=== PATIENT | male | born 1965 | race Caucasian/White ===

== ENCOUNTER 2017-06-16 00:45 | Emergency (ER) | payer OTHER ==
[~2017-06-16] VITALS: Ht 188 cm; Wt 83.9 kg
[2017-06-16 01:01] VITALS: BP 158/67
[2017-06-16] MEDS ORDERED: PENICILLIN G BENZATHINE 2.4 MMU/4 ML ML IM ONE ×2 (01:30→02:03)
== END 2017-06-16 02:22 | disposition home or self-care (01) ==
LOC: ER 00:45
DX: K08.89 Other specified disorders of teeth and supporting structures (principal)
CPT/HCPCS: 96372; 99283; A4606; J0558; Z7610

== ENCOUNTER 2018-03-23 06:43 | Emergency (ER) | payer SELFPAY ==
[~2018-03-23] VITALS: Ht 182.9 cm; Wt 74.8 kg
[2018-03-23 06:43] VITALS: BP 123/94
== END 2018-03-23 06:57 | disposition home or self-care (01) ==
LOC: ER 06:43
DX: M77.01 Medial epicondylitis, right elbow (principal)
CPT/HCPCS: 99281; A4606; Z7610; Z7502

== ENCOUNTER 2022-07-27 07:48 | Emergency (ER) | payer MEDICAID ==
[~2022-07-27] VITALS: Ht 188 cm; Wt 83.9 kg
--- NOTE | 2022-07-27 09:06 | NUR ---
DR JAY AT BEDSIDE FOR EVAL.
[2022-07-27] MEDS ORDERED: LIDOCAINE 1%-EPI 1:100,000 20 ML VIAL TP ONE (09:30)
[2022-07-27] MEDS ORDERED: SULF1TAB48 PO (09:39)
--- NOTE | 2022-07-27 09:42 | NUR ---
INCISION AND DRAINAGE DONE. PT TOLERATED PROCEDURE WELL.
--- NOTE | 2022-07-27 09:56 | NUR ---
Patient discharged to home in stable condition. Written and verbal after care instructions given. Patient verbalizes understanding of instruction.
[2022-07-27 09:57] VITALS: BP 120/80
== END 2022-07-27 09:58 | disposition home or self-care (01) ==
LOC: ER 08:05
DX: L02.416 Cutaneous abscess of left lower limb (principal)
CPT/HCPCS: 99283; 10060; 76882; A6403; A6407

== ENCOUNTER 2022-07-31 00:24 | Emergency (ER) | payer MEDICAID ==
[~2022-07-31] VITALS: Ht 177.8 cm; Wt 70.3 kg
[~2022-07-31 00:24] MED LIST: SULF1TAB48 PO
[2022-07-31 01:01] VITALS: BP 144/77
== END 2022-07-31 03:20 | disposition home or self-care (01) ==
LOC: ER 00:25
DX: L02.416 Cutaneous abscess of left lower limb (principal); Z48.00 Encounter for change or removal of nonsurgical wound dressing

== ENCOUNTER 2022-09-03 03:40 | Emergency (ER) | payer MEDICAID ==
[~2022-09-03] VITALS: Ht 182.9 cm; Wt 65.8 kg
[2022-09-03 03:49] VITALS: BP 136/80
[2022-09-03] MEDS ORDERED: KETO10TA2 PO (03:53)
--- NOTE | 2022-09-03 04:10 | NUR ---
DRESSING DONE TO WOUNDS
--- NOTE | 2022-09-03 04:17 | NUR ---
Patient discharged to home in stable condition. Written and verbal after care instructions given. Patient verbalizes understanding of instruction.
== END 2022-09-03 04:17 | disposition home or self-care (01) ==
LOC: ER 03:42
DX: T25.632A Corrosion of second degree of left toe(s) (nail), initial encounter (principal); Z79.899 Other long term (current) drug therapy; Y93.89 Activity, other specified; Y92.89 Other specified places as the place of occurrence of the external cause; Y99.8 Other external cause status
CPT/HCPCS: 99283; A6403

== ENCOUNTER 2023-11-18 05:00 | Emergency (ER) | payer MEDICAID, OTHER ==
[~2023-11-18] VITALS: Ht 185.4 cm; Wt 88.5 kg
[~2023-11-18 05:00] MED LIST changes: +KETO10TA2 PO
[2023-11-18 06:17] LABS: BASOPHILS # (AUTO) 0.2 K/uL (0.0-0.2); BASOPHILS % (AUTO) 2.8 % (0.0-2.0); EOSINOPHILS # (AUTO) 0.3 K/uL (0.0-0.7); EOSINOPHILS % (AUTO) 5.6 % (0.0-6.0); HEMATOCRIT 39 % (39-51); HEMOGLOBIN 12.8 g/dL (13.5-17.5); LYMPHOCYTES # (AUTO) 0.8 K/uL (0.8-4.8); LYMPHOCYTES % (AUTO) 15.2 % (20.0-44.0); MEAN CORPUSCULAR HEMOGLOBIN 29 PG (26.0-33.0); MEAN CORPUSCULAR HGB CONC 33 g/dl (31.0-36.0); MEAN CORPUSCULAR VOLUME 89 fL (80-96); MONOCYTES # (AUTO) 0.3 K/uL (0.1-1.30); MONOCYTES % (AUTO) 6.4 % (2.0-12.0); NEUTROPHILS # (AUTO) 3.8 K/uL (1.8-8.9); PLATELET COUNT (AUTO) 296 K/uL (150-450); RED BLOOD CELL COUNT(AUTO) 4.37 MIL/uL (4.5-6.0); RED CELL DISTRIBUTION WIDTH 14.7 % (11.5-15.0); WHITE BLOOD COUNT (AUTO) 5.4 K/uL (4.3-11.0)
[2023-11-18 06:25] LABS: INR 1.01 (0.91-1.10); PARTIAL THROMBOPLASTIN TIME 32.3 SEC (24.3-34.3); PROTHROMBIN TIME 10.7 SECS (9.2-11.1)
[2023-11-18 06:47] LABS: ALANINE AMINOTRANSFERASE 18 U/L (12-78); ALBUMIN 3.3 g/dL (3.4-5.0); ALKALINE PHOSPHATASE 121 U/L (46-116); ASPARTATE AMINOTRANSFERASE 17 U/L (15-37); BILIRUBIN,DIRECT 0.1 mg/dL (0.0-0.2); BILIRUBIN,TOTAL 0.4 mg/dL (0.2-1.0); CALCIUM, SERUM 8.8 mg/dL (8.5-10.1); CARBON DIOXIDE 28 mmol/L (21-32); CHLORIDE 103 mmol/L (98-107); CREATININE 0.7 mg/dL (0.6-1.3); GLUCOSE 88 mg/dL (74-106); NT-PRO BNP 40 pg/mL (0-125); POTASSIUM 3.9 mmol/L (3.5-5.1); SODIUM SERUM 139 mmol/L (136-145); TOTAL PROTEIN, SERUM 7.2 g/dL (6.4-8.2); UREA NITROGEN, BLOOD 10 mg/dL (7-18)
[2023-11-18] MEDS ORDERED: ALBUTEROL FS 2.5 MG/3 ML VIAL.NEB ONE (06:49)
[2023-11-18] MEDS ORDERED: IPRATROPIUM NEB FS 0.5 MG/2.5 ML AMPUL.NEB ONE (06:49)
[2023-11-18 06:55] VITALS: O2SAT 93
[2023-11-18] MEDS: ALBUTEROL FS 2.5 MG/3 ML VIAL.NEB CONTNEB ONE (06:55)
[2023-11-18] MEDS: IPRATROPIUM NEB FS 0.5 MG/2.5 ML AMPUL.NEB NEB ONE (06:55)
[2023-11-18] MEDS ORDERED: predniSONE 20 MG TABLET ONE (06:58)
[2023-11-18] MEDS ORDERED: PRED20TA PO (07:00)
[2023-11-18] MEDS ORDERED: AMOX-430 PO (07:00)
[2023-11-18] MEDS: predniSONE 20 MG TABLET PO ONE (07:00)
[2023-11-18] MEDS ORDERED: ALBU18HF2 INH (07:00)
[2023-11-18] MEDS ORDERED: AZIT250T13 PO (07:00)
[2023-11-18 07:40] VITALS: O2SAT 99
[2023-11-18 08:46] VITALS: BP 166/89; TEMP 97.9; O2SAT 99
== END 2023-11-18 08:46 | disposition home or self-care (01) ==
LOC: ER 05:03
DX: J40 Bronchitis, not specified as acute or chronic (principal); Z60.2 Problems related to living alone; Z79.899 Other long term (current) drug therapy
CPT/HCPCS: 99285; 71045; 93005; 85025; 80048; 80076; 36415; 84484; 85730; 83880; 94644; J7512